=== PATIENT | female | born 1935 | race Caucasian/White ===

== ENCOUNTER 2018-04-09 16:23 | Emergency (ER) | payer OTHER ==
[2018-04-09] MEDS ORDERED: AMLODIPINE 5 MG TAB ONE (17:19)
[2018-04-09 17:33] LABS: Absolute Lymphocytes (CBC) 1.3 K/uL (0.7-4.9); Absolute Monocytes 0.5 K/uL (0.1-1.3); Absolute Neutrophil 4.8 K/uL (1.8-8.0); Basophils % 0.7 % (0-1.3); Eosinophils % 0.7 % (0-4.4); Hematocrit 40.7 % (36.0-45.0); Lymphocytes % 18.9 % (15.3-44.8); MCH 32.1 pg (27.0-35.0); MPV 9.8 fL (7.6-11.3); Monocytes % 8.1 % (3.3-12.3); RBC Red Blood Cell Count 4.28 M/uL (3.86-4.86)
--- NOTE | 2018-04-09 17:56 | EKG ---
Test Date: 2018-04-09 Test Time: 17:22:08 Ingot Buggy Operator: HEIDE MEASUREMENT RESULTS: Intervals: Rate: 54 ME: 174 QRSD: 84 QT: 440 QTc: 417 Beccaria: P: 26 ME: 174 QRS: -32 T: 29 INTERPRETIVE STATEMENTS: Sinus bradycardia with sinus arrhythmia Left axis deviation Minimal voltage criteria for LVH, may be normal variant Cannot rule out Anterior infarct, age undetermined Abnormal ECG No previous ECG available for comparison Electronically Signed On 04-09-18 17:56:25 CDT by Mark Cole
[2018-04-09 18:02] LABS: ALT/SGPT 40 U/L (12-78); AST/SGOT 33 U/L (15-37); Albumin 3.7 g/dL (3.4-5.0); Alkaline Phosphatase 68 U/L (45-117); BUN Blood Urea Nitrogen 13 mg/dL (7-18); Bicarbonate 29 mmol/L (21-32); Bilirubin Direct 0.3 mg/dL (0-0.2); Bilirubin Total 1.1 mg/dL (0.2-1.0); CKMB Creatine Kinase MB < 1.0 ng/mL (0.3-3.6); Creatine Phosphokinase 39 U/L (26-192); Glucose Level 95 mg/dL (74-106); Magnesium 2.2 mg/dL (1.8-2.4); NT PRO-BNP 423 pg/mL (<450); Protein, Total 7.3 g/dL (6.4-8.2); Sodium Level 139 mmol/L (136-145)
--- NOTE | 2018-04-09 18:06 | RAD REPORT ---
EXAM DESCRIPTION: RAD - Chest Single View - 04/09/2018 5:32 pm CLINICAL HISTORY: Cough, hypertension COMPARISON: None. TECHNIQUE: AP portable chest image was obtained 1729 hours . FINDINGS: Interstitial fibrotic pattern is present. No comparison is available. No suspicious failur e, infiltrate or mass. Granulomatous calcifications are present. Trachea is midline. Mediastinal and hilar regions within normal limits. Heart and vasculature are normal. No measurable pleural effusion and no pneumothorax. No gross bony abnormality seen. No acute aortic findings suspected. IMPRESSION: Fibrotic lung change and old granulomatous change. No acute findings.
--- NOTE | 2018-04-09 18:55 | ER ---
Nurse's Notes [facility] Name: Viky Lee Age: 82 yrs Sex: Female : 1935 Arrival Date: 04/09/2018 Time: 16:27 Bed 30 Private MD: Diagnosis: Essential (primary) hypertension Presentation: 04/09 16:32 Presenting complaint: Patient states: Sent by Dr Vick for HTN in office. Recent aj sinus congestion. Reports headache to front of forehead. Transition of care: patient was not received from another setting of care. Onset of symptoms was April 09, 2018. Risk Assessment: Do you want to hurt yourself or someone else? Patient reports no desire to harm self or others. Initial Sepsis Screen: Does the patient meet any 2 criteria? No. Patient's initial sepsis screen is negative. Does the patient have a suspected source of infection? No. Patient's initial sepsis screen is negative. Care prior to arrival: None. 16:32 Method Of Arrival: Ambulatory aj 16:32 Acuity: TOMAS 3 aj Triage Assessment: 16:36 Headache History: The patient has had previous headaches. General: Appears in no aj apparent distress. comfortable, Behavior is calm, cooperative, appropriate for age. Pain: Complains of pain in forehead, right eye and left eye. Neuro: Level of Consciousness is awake, alert, obeys commands, Oriented to person, place, time, situation, Appropriate for age. Respiratory: Airway is patent Respiratory effort is even, unlabored, Respiratory pattern is regular, symmetrical. Derm: Skin is intact, is healthy with good turgor, Skin is pink, warm \T\ dry. normal. 17:29 Pain: Pain currently is 8 out of 10 on a pain scale. Pain began 2 hours ago. Also rv complains of no other associated symptoms. Historical: - Allergies: 16:36 Sulfa (Sulfonamide Antibiotics); aj - PMHx: 16:36 Hypertension; Hypothyroidism; Depression; Cancer; Colostomy; aj - PSHx: 16:36 Appendectomy; Tubal ligation; Knee surgery; colon resection; Hysterectomy; Hernia aj repair; - Immunization history:: Adult Immunizations up to date. - Social history:: Smoking status: Patient/guardian denies using tobacco. - Ebola Screening: : Patient negative for fever greater than or equal to 101.5 degrees Fahrenheit, and additional compatible Ebola Virus Disease symptoms Patient denies exposure to infectious person Patient denies travel to an Ebola-affected area in the 21 days before illness onset No symptoms or risks identified at this time. - Family history:: not pertinent. Screenin:15 Abuse screen: Denies threats or abuse. Denies injuries from another. rv 17:15 Nutritional screening: No deficits noted. Tuberculosis screening: No symptoms or risk rv factors identified. Fall Risk None identified. Assessment: 17:15 General: Appears in no apparent distress. comfortable, Behavior is calm, cooperative. rv 17:15 Pain: Denies pain. Neuro: Level of Consciousness is awake, alert, obeys commands, rv Oriented to person, place, time, situation. Cardiovascular: Heart tones S1 S2 present. Respiratory: Airway is patent. GI: No signs and/or symptoms were reported involving the gastrointestinal system. : No signs and/or symptoms were reported regarding the genitourinary system. EENT: No signs and/or symptoms were reported regarding the EENT system. Derm: Skin is intact. Vital Signs: 16:36 BP 193 / 101; Pulse 92; Resp 17; Temp 98.2; Pulse Ox 96% on R/A; Weight 68.49 kg; aj Height 5 ft. 5 in. (165.10 cm); 18:25 BP 193 / 67; Pulse 55; Resp 16; Pulse Ox 100% on R/A; rv 18:58 BP 177 / 72; Pulse 59; Resp 16; Pulse Ox 96% on R/A; rv 16:36 Body Mass Index 25.13 (68.49 kg, 165.10 cm) ED Course: 16:27 Patient arrived in ED. rg4 16:34 Triage completed. aj 16:36 Arm band placed on right wrist. Patient placed in an exam room. aj 16:48 Jasbir Zhao MD is Attending Physician. [facility] 17:15 Patient has correct armband on for positive identification. Placed in gown. Bed in low rv position. Call light in reach. Side rails up X 1. Adult w/ patient. monitoring and evaluation advisor on. Pulse ox on. NIBP on. 17:24 Radiology exam delayed due to IV insertion attempt and/or patient not having ag1 appropriate IV at this time. 17:30 X-ray completed. Portable x-ray completed in exam room. Patient tolerated procedure ag1 well. 17:31 XRAY Chest (1 view) In Process Unspecified. EDMS 17:31 EKG done, by optical coating technician. reviewed by Jasbir Zhao MD. 3 18:54 Mark Cole MD is Referral Physician. [facility] 18:58 No provider procedures requiring assistance completed. IV discontinued, bleeding rv controlled, No redness/swelling at site. Pressure dressing applied. Administered Medications: 17:20 Drug: Norvasc 5 mg Route: PO; rv 18:59 Follow up: Response: No adverse reaction; Blood pressure is lowered rv Outcome: 18:54 Discharge ordered by . zackery 18:58 Discharged to home ambulatory, with family. rv 18:58 Condition: improved 18:58 Discharge instructions given to patient, Instructed on discharge instructions, follow up and referral plans. medication usage. 19:05 Patient left the ED. rv Signatures: Dispatcher [employer] EDMS Niki Oates, RN RN Jasbir Lujan MD MD cha Gallaway, Ashley ag1 Carolee Mcmahon 4 Tereza Ji 3 Romaine Rubio, RN RN rv
--- NOTE | 2018-04-09 18:55 | EDPHYS ---
Physician Documentation [facility] Name: Viky Lee Age: 82 yrs Sex: Female : 1935 Arrival Date: 04/09/2018 Time: 16:27 Bed 30 Private MD: ED Physician Jasbir Zhao HPI: 04/09 17:09 This 82 yrs old Female presents to ER via Ambulatory with complaints of High zackery Blood Pressure, Headache. 17:09 The patient has elevated blood pressure and discovered this at home, at hospital. zackery Onset: The symptoms/episode began/occurred just prior to arrival. Modifying factors: The symptoms are aggravated by activity, The symptoms are alleviated by remaining still. Associated signs and symptoms: Pertinent positives: headache. Severity of symptoms: At its worst the blood pressure was moderate. The patient has experienced similar episodes in the past, a few times. Historical: - Allergies: 16:36 Sulfa (Sulfonamide Antibiotics); aj - PMHx: 16:36 Hypertension; Hypothyroidism; Depression; Cancer; Colostomy; aj - PSHx: 16:36 Appendectomy; Tubal ligation; Knee surgery; colon resection; Hysterectomy; Hernia aj repair; - Immunization history:: Adult Immunizations up to date. - Social history:: Smoking status: Patient/guardian denies using tobacco. - Ebola Screening: : Patient negative for fever greater than or equal to 101.5 degrees Fahrenheit, and additional compatible Ebola Virus Disease symptoms Patient denies exposure to infectious person Patient denies travel to an Ebola-affected area in the 21 days before illness onset No symptoms or risks identified at this time. - Family history:: not pertinent. ROS: 17:09 Constitutional: Negative for fever, chills, and weight loss, Eyes: Negative for injury, zacekry pain, redness, and discharge, ENT: Negative for injury, pain, and discharge, Neck: Negative for injury, pain, and swelling, Cardiovascular: Negative for chest pain, palpitations, and edema, Respiratory: Negative for shortness of breath, cough, wheezing, and pleuritic chest pain, Abdomen/GI: Negative for abdominal pain, nausea, vomiting, diarrhea, and constipation, Back: Negative for injury and pain, : Negative for injury, bleeding, discharge, and swelling, MS/Extremity: Negative for injury and deformity, Skin: Negative for injury, rash, and discoloration, Psych: Negative for depression, anxiety, suicide ideation, homicidal ideation, and hallucinations, Allergy/Immunology: Negative for hives, rash, and allergies, Endocrine: Negative for neck swelling, polydipsia, polyuria, polyphagia, and marked weight changes. 17:09 Neuro: Positive for headache. Exam: 17:09 Constitutional: This is a well developed, well nourished patient who is awake, alert, zackery and in no acute distress. Head/Face: Normocephalic, atraumatic. Eyes: Pupils equal round and reactive to light, extra-ocular motions intact. Lids and lashes normal. Conjunctiva and sclera are non-icteric and not injected. Cornea within normal limits. Periorbital areas with no swelling, redness, or edema. ENT: Nares patent. No nasal discharge, no septal abnormalities noted. Tympanic membranes are normal and external auditory canals are clear. Oropharynx with no redness, swelling, or masses, exudates, or evidence of obstruction, uvula midline. Mucous membranes moist. Neck: Trachea midline, no thyromegaly or masses palpated, and no cervical lymphadenopathy. Supple, full range of motion without nuchal rigidity, or vertebral point tenderness. No Meningismus. Chest/axilla: Normal chest wall appearance and motion. Nontender with no deformity. No lesions are appreciated. Cardiovascular: Regular rate and rhythm with a normal S1 and S2. No gallops, murmurs, or rubs. Normal PMI, no JVD. No pulse deficits. Respiratory: Lungs have equal breath sounds bilaterally, clear to auscultation and percussion. No rales, rhonchi or wheezes noted. No increased work of breathing, no retractions or nasal flaring. Abdomen/GI: Soft, non-tender, with normal bowel sounds. No distension or tympany. No guarding or rebound. No evidence of tenderness throughout. Back: No spinal tenderness. No costovertebral tenderness. Full range of motion. Skin: Warm, dry with normal turgor. Normal color with no rashes, no lesions, and no evidence of cellulitis. MS/ Extremity: Pulses equal, no cyanosis. Neurovascular intact. Full, normal range of motion. Neuro: Awake and alert, GCS 15, oriented to person, place, time, and situation. Cranial nerves II-XII grossly intact. Motor strength 5/5 in all extremities. Sensory grossly intact. Cerebellar exam normal. Normal gait. Psych: Awake, alert, with orientation to person, place and time. Behavior, mood, and affect are within normal limits. Vital Signs: 16:36 BP 193 / 101; Pulse 92; Resp 17; Temp 98.2; Pulse Ox 96% on R/A; Weight 68.49 kg; aj Height 5 ft. 5 in. (165.10 cm); 18:25 BP 193 / 67; Pulse 55; Resp 16; Pulse Ox 100% on R/A; rv 18:58 BP 177 / 72; Pulse 59; Resp 16; Pulse Ox 96% on R/A; rv 16:36 Body Mass Index 25.13 (68.49 kg, 165.10 cm) aj MDM: 16:48 Patient medically screened. [facility] 17:12 Data reviewed: vital signs, nurses notes, lab test result(s), EKG, radiologic studies, zackery plain films. 04/09 17:08 Order name: Basic Metabolic Panel; Complete Time: 18:10 [facility] 04/09 17:08 Order name: CBC with Diff; Complete Time: 18:10 [facility] 04/09 17:08 Order name: Ckmb; Complete Time: 18:10 [facility] 04/09 17:08 Order name: CPK; Complete Time: 18:10 [facility] 04/09 17:08 Order name: LFT's; Complete Time: 18:10 [facility] 04/09 17:08 Order name: Magnesium; Complete Time: 18:10 [facility] 04/09 17:08 Order name: NT PRO-BNP; Complete Time: 18:10 [facility] 04/09 17:08 Order name: Troponin (emerg Dept Use Only); Complete Time: 18:10 [facility] 04/09 17:08 Order name: XRAY Chest (1 view); Complete Time: 18:10 [facility] 04/09 17:08 Order name: EKG; Complete Time: 17:09 [facility] 04/09 17:08 Order name: Cardiac monitoring; Complete Time: 17:13 [facility] 04/09 17:08 Order name: EKG - Nurse/Tech; Complete Time: 17:13 [facility] 04/09 19:02 Order name: Urine Dipstick--Ancillary (enter results) ri 04/09 17:08 Order name: IV Saline Lock; Complete Time: 17:13 [facility] 04/09 17:08 Order name: Labs collected and sent; Complete Time: 17:13 [facility] 04/09 17:08 Order name: O2 Per Protocol; Complete Time: 17:13 [facility] 04/09 17:08 Order name: O2 Sat Monitoring; Complete Time: 17:13 [facility] 04/09 17:08 Order name: Urine Dipstick-Ancillary (obtain specimen); Complete Time: 18:59 [facility] 04/09 18:10 Order name: Vital Signs; Complete Time: 18:25 [facility] Administered Medications: 17:20 Drug: Norvasc 5 mg Route: PO; rv 18:59 Follow up: Response: No adverse reaction; Blood pressure is lowered rv Disposition: 04/09/18 18:54 Discharged to Home. Impression: Essential (primary) hypertension. - Condition is Stable. - Discharge Instructions: Hypertension, Hypertension, [id number], How to Take Your Blood Pressure, [id number], Managing Your Hypertension. - Prescriptions for Yi 5- 20 mg Oral tablet - take 2 tablet by ORAL route once daily; 60 tablet. - Medication Reconciliation Form, Thank You Letter, Antibiotic Education, Prescription Opioid Use form. - Follow up: Private Physician; When: 2 - 3 days; Reason: Recheck today's complaints, Continuance of care, Re-evaluation by your physician. Follow up: Mark Cole; When: 2 - 3 days; Reason: Recheck today's complaints, Continuance of care, Re-evaluation by your physician. - Problem is new. - Symptoms have improved. Signatures: Dispatcher [employer] Niki Fine RN RN aj Anderson, Corey, MD MD cha Vicente, Ronaldo, RN RN rv Corrections: (The following items were deleted from the chart) 19:05 18:54 04/09/2018 18:54 Discharged to Home. Impression: Essential (primary) rv hypertension. Condition is Stable. Discharge Instructions: Hypertension, Hypertension, [id number], How to Take Your Blood Pressure, [id number], Managing Your Hypertension. Prescriptions for Yi 5-20 mg Oral tablet - take 2 tablet by ORAL route once daily; 60 tablet. and Forms are Medication Reconciliation Form, Thank You Letter, Antibiotic Education, Prescription Opioid Use. Follow up: Private Physician; When: 2 - 3 days; Reason: Recheck today's complaints, Continuance of care, Re-evaluation by your physician. Follow up: Mark Cole; When: 2 - 3 days; Reason: Recheck today's complaints, Continuance of care, Re-evaluation by your physician. Problem is new. Symptoms have improved. zackery
[2018-04-09 19:28] LABS: Urine Blood NEGATIVE (NEG); Urine Glucose NEGATIVE (NEG); Urine Protein NEGATIVE (NEG)
== END 2018-04-09 19:05 | disposition home or self-care (01) ==
LOC: ER 16:23
DX: I10 Essential (primary) hypertension (principal); E03.9 Hypothyroidism, unspecified
CPT/HCPCS: 36415; 71045; 80048; 80076; 81003; 82550; 82553; 83735; 83880; 84484; 85025; 93005; 99284